=== PATIENT | male | born 1995 | race Caucasian/White ===

== ENCOUNTER 2019-06-04 14:36 | Outpatient (CLI) | payer OTHER ==
--- NOTE | 2019-06-04 15:02 | RAD ---
THREE VIEWS LUMBAR SPINE: HISTORY: Low back pain. Preoperative exam. FINDINGS: Lateral neutral, lateral flexion and lateral extension views do not demonstrate any abnormal motion u lizz extension or flexion. No significant spondylolisthesis in the neutral position. Vertebral body heights are maintained. No significant loss of disc space height. IMPRESSION: Unremarkable lumbar spine radiographs series. Transcribed Date/Time: 06/04/2019 3:03 PM
== END 2019-06-04 14:37 | disposition home or self-care (01) ==
LOC: TBSIIMAG 14:36
PROVIDERS: ATTEND Neurological Surgery
DX: M54.5 Low back pain (principal)
CPT/HCPCS: 72100